=== PATIENT | male | born 1950 | race Caucasian/White ===

== ENCOUNTER → 2019-04-19 15:19 | Outpatient (BNVA) | payer MEDICARE, SELFPAY | PROVIDERS: Visit Provider Nurse Practitioner Family | DX: R31.9 Hematuria, unspecified (principal); N39.0 Urinary tract infection, site not specified; Z79.899 Other long term (current) drug therapy; R53.83 Other fatigue; E55.9 Vitamin D deficiency, unspecified; E78.5 Hyperlipidemia, unspecified; R10.9 Unspecified abdominal pain | CPT/HCPCS: 74018; 80053; 80061; 81001; 83036; 84443; 85025 ==

== ENCOUNTER 2019-04-29 11:04 | Outpatient (CLI) | payer MEDICARE, SELFPAY ==
--- NOTE | 2019-04-29 11:13 | XR_ITS ---
WS: [id number] XR lumbar spine 6V w f/e [id number] REASON FOR EXAM: lumbar strain FINDINGS: Degenerated disc changes L5-S1. There is ankylosing changes T12-L1 anteriorly. There is spurring anteriorly L3 and L4. Limited flexion changes are noted from L3 superiorly. XR/XR lumbar spine 6V w f/e [id number] IMPRESSION: Degenerated disc changes L5-S1 Limited flexion superiorly from L3.
--- NOTE | 2019-04-29 11:13 | XR_ITS ---
WS: [id number] XR thoracic spine 3V* [id number] REASON FOR EXAM: thoracic strain FINDINGS: Ankylosing changes anteriorly T9-T12. There is spurring seen in ankylosing changes in the mid thoracic area. The apophyseal joints show ankylosing changes from T4 down to the T10. The cervicothoracic junction was normal. 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
== END 2019-04-29 11:05 | disposition home or self-care (01) ==
LOC: RAD 11:11
PROVIDERS: PCP Nurse Practitioner Family; Visit Provider Nurse Practitioner Family
DX: S39.012A Strain of muscle, fascia and tendon of lower back, initial encounter (principal); S29.019A Strain of muscle and tendon of unspecified wall of thorax, initial encounter; M47.894 Other spondylosis, thoracic region; M47.897 Other spondylosis, lumbosacral region; X58.XXXA Exposure to other specified factors, initial encounter
CPT/HCPCS: 72072; 72114

== ENCOUNTER → 2020-01-19 11:32 | Outpatient (BNVA) | payer MEDICARE, SELFPAY | PROVIDERS: PCP Nurse Practitioner Family; Visit Provider Nurse Practitioner Family | DX: N39.0 Urinary tract infection, site not specified (principal); R31.9 Hematuria, unspecified | CPT/HCPCS: 81003; 87086; 87635 ==

== ENCOUNTER → 2020-01-24 16:18 | Outpatient (BNVA) | payer MEDICARE, SELFPAY | PROVIDERS: PCP Nurse Practitioner Family; Visit Provider Nurse Practitioner Family | DX: R31.9 Hematuria, unspecified (principal) | CPT/HCPCS: 81003 ==

== ENCOUNTER → 2020-10-04 10:08 | Outpatient (BNVA) | payer MEDICARE, SELFPAY | PROVIDERS: PCP Nurse Practitioner Family; Visit Provider Nurse Practitioner Family | DX: Z20.822 Contact with and (suspected) exposure to COVID-19 (principal) | CPT/HCPCS: 87635 ==

== ENCOUNTER → 2022-04-08 16:35 | Outpatient (BNVA) | payer MEDICARE, SELFPAY | PROVIDERS: PCP Nurse Practitioner; Visit Provider Nurse Practitioner | DX: R50.9 Fever, unspecified (principal) | CPT/HCPCS: 87426 ==

== ENCOUNTER → 2022-06-20 11:03 | Outpatient (BNVA) | payer MEDICARE, SELFPAY | PROVIDERS: PCP Nurse Practitioner; Visit Provider Nurse Practitioner | DX: L98.9 Disorder of the skin and subcutaneous tissue, unspecified (principal); Z95.1 Presence of aortocoronary bypass graft; R53.83 Other fatigue; E55.9 Vitamin D deficiency, unspecified; E78.2 Mixed hyperlipidemia | CPT/HCPCS: 80053; 80061; 82306; 84443; 85025 ==

== ENCOUNTER → 2022-07-15 12:57 | Outpatient (BNVA) | payer MEDICARE, SELFPAY | PROVIDERS: PCP Nurse Practitioner; Referring Provider Nurse Practitioner; Visit Provider Dermatology | DX: B35.3 Tinea pedis (principal); D23.112 Other benign neoplasm of skin of right lower eyelid, including canthus; L57.0 Actinic keratosis; D48.5 Neoplasm of uncertain behavior of skin; L81.4 Other melanin hyperpigmentation; L91.0 Hypertrophic scar; C44.329 Squamous cell carcinoma of skin of other parts of face | CPT/HCPCS: 11102; 17000; 17003; 99203 ==

== ENCOUNTER → 2022-08-18 08:28 | Outpatient (BNVA) | payer MEDICARE, SELFPAY | PROVIDERS: PCP Nurse Practitioner; Visit Provider Dermatology | DX: C44.329 Squamous cell carcinoma of skin of other parts of face (principal) | CPT/HCPCS: 13132; 17311; 17312 ==

== ENCOUNTER → 2022-08-27 10:45 | Outpatient (BNVA) | payer MEDICARE, SELFPAY | PROVIDERS: PCP Nurse Practitioner; Visit Provider Dermatology | DX: C44.42 Squamous cell carcinoma of skin of scalp and neck (principal) | CPT/HCPCS: 99212 ==

== ENCOUNTER 2023-11-10 06:00 | Outpatient (RCR) | payer MEDICARE, SELFPAY | END 2023-12-10 23:59 | disposition home or self-care (01) | LOC: WPT 06:00 | PROVIDERS: Visit Provider Nurse Practitioner Family | DX: I63.9 Cerebral infarction, unspecified (principal) | CPT/HCPCS: 97110; 97112; 97161; 97530 ==

== ENCOUNTER 2023-12-11 06:00 | Outpatient (RCR) | payer MEDICARE, SELFPAY | END 2024-01-09 23:59 | disposition home or self-care (01) | LOC: WPT 06:00 | PROVIDERS: Visit Provider Nurse Practitioner Family | DX: I63.9 Cerebral infarction, unspecified (principal) | CPT/HCPCS: 97110; 97112; 97530 ==

== ENCOUNTER → 2024-11-21 13:22 | Outpatient (BNVA) | payer MEDICARE, SELFPAY | PROVIDERS: Visit Provider Podiatrist Foot & Ankle Surgery | DX: Q82.8 Other specified congenital malformations of skin (principal); M79.672 Pain in left foot; L60.3 Nail dystrophy; Q66.72 Congenital pes cavus, left foot | CPT/HCPCS: 17110; 99203 ==

== ENCOUNTER → 2024-12-28 14:39 | Outpatient (BNVA) | payer MEDICARE, SELFPAY | PROVIDERS: PCP Nurse Practitioner Family; Visit Provider Nurse Practitioner Family | DX: Z79.01 Long term (current) use of anticoagulants (principal) | CPT/HCPCS: 85610 ==

== ENCOUNTER → 2024-12-30 10:27 | Outpatient (BNVA) | payer MEDICARE, SELFPAY | PROVIDERS: PCP Nurse Practitioner Family; Visit Provider Nurse Practitioner Family | DX: R10.9 Unspecified abdominal pain (principal); Z79.01 Long term (current) use of anticoagulants | CPT/HCPCS: 85610 ==